=== PATIENT | female | born 1960 | race Caucasian/White ===

== ENCOUNTER 2020-11-04 12:25 | Day surgery (SDC) | payer OTHER ==
[2020-11-02 10:38] LABS: MICROSCOPIC NOT IND
[2020-11-02 10:40] LABS: BASOPHILS % (AUTO) 1 % (0-1); EOSINOPHILS % (AUTO) 1 % (1-7); LYMPHOCYTES % (AUTO) 36 % (22-44); MD NO; MEAN CORPUSCULAR HEMOGLOBIN 31.9 pg (27.0-34.8); MEAN CORPUSCULAR HGB CONC 33.7 g/dL (32.4-35.8); MEAN PLATELET VOLUME 7.1 fL (7.4-10.4); MONOCYTES % (AUTO) 8 % (2-9); NEUTROPHILS % (AUTO) 54 % (42-75); PLATELET COUNT 366 x10^3/uL (130-400); RED BLOOD COUNT 4.47 x10^6/uL (3.82-5.3); RED CELL DISTRIBUTION WIDTH 12.8 % (9.6-15.2)
[2020-11-02 10:49] LABS: ALANINE AMINOTRANSFERASE 32 U/L (12-78); ALBUMIN 4.4 g/dL (3.4-5.0); ANION GAP 6 mmol/L (5-15); CALCIUM 9.5 mg/dL (8.5-10.1); CHLORIDE 106 mmol/L (98-107); CREATININE 0.77 mg/dL (0.55-1.02)
[2020-11-02 10:51] LABS: ALKALINE PHOSPHATASE 79 U/L (45-117); BILIRUBIN,TOTAL 0.6 mg/dL (0.2-1.0); TOTAL PROTEIN 8.4 g/dL (6.4-8.2)
[~2020-11-04] VITALS: Ht 167.6 cm; Wt 58.8 kg
[~2020-11-04 12:25] MED LIST: ATOR10TA9 PO; CRAN500T3 PO; LEVO25TA4 PO; LISI-167 PO; METH500T5 PO
[2020-11-04] MEDS ORDERED: LACTATED RINGERS 1,000 ML IV SCH (13:00)
[2020-11-04 13:05] VITALS: BP 127/79
[2020-11-04] MEDS ORDERED: CHLORHEXIDINE 15 ML UDC ONE (13:08)
[2020-11-04] MEDS ORDERED: ONDANSETRON 2MG/ML, 2ML IVPush PRN (13:30)
[2020-11-04] MEDS ORDERED: HYDROcodone/APAP 7.5-325MG/15ML UDC PO PRN (13:30)
[2020-11-04] MEDS ORDERED: HYDROmorphone 1 MG/ML, 1ML INJ IVPush PRN (13:30)
[2020-11-04] MEDS ORDERED: PROMETHAZINE 25 MG/ML, 1ML IVPush PRN (13:30)
[2020-11-04] MEDS ORDERED: MEPERIDINE/PF 25MG/0.5ML IVPush PRN (13:30)
[2020-11-04] MEDS ORDERED: OXYcodone 5 MG/5 ML ORAL.SOL UDC PO PRN (13:30)
[2020-11-04] MEDS ORDERED: CHLORHEXIDINE 15 ML UDC PO ONE (13:30)
[2020-11-04] MEDS ORDERED: FENTANYL PF 100 MCG/2ML ONE ×2 (14:15→16:59)
[2020-11-04] MEDS ORDERED: MIDAZOLAM 1 MG/ML, 2ML ONE (14:15)
[2020-11-04] MEDS ORDERED: EPINEPHRINE 1 MG/ML, 1ML ONE (15:09)
[2020-11-04] MEDS ORDERED: FLUORESCEIN SODIUM 500 MG/5 ML ONE (15:09)
[2020-11-04] MEDS ORDERED: METHYLENE BLUE 50 MG/10 ML AMP ONE (15:09)
[2020-11-04] MEDS ORDERED: LIDOCAINE/PF 1%, 30ML ONE (15:09)
[2020-11-04] MEDS ORDERED: GLYCOPYRROLATE 0.2MG/1ML, 5ML ONE (16:33)
[2020-11-04] MEDS ORDERED: DEXAMETHASONE 4 MG/ML, 1ML ONE (16:33)
[2020-11-04] MEDS ORDERED: ONDANSETRON 2MG/ML, 2ML ONE (16:33)
[2020-11-04] MEDS ORDERED: CEFAZOLIN 1,000 MG ONE (16:33)
[2020-11-04] MEDS ORDERED: SUCCINYLCHOLINE 20 MG/ML, 10ML ONE (16:33)
[2020-11-04] MEDS ORDERED: ROCURONIUM 10MG/ML,5ML ONE (16:33)
[2020-11-04] MEDS ORDERED: NEOSTIGMINE 1 MG/ML, 10ML ONE (16:33)
[2020-11-04] MEDS ORDERED: PROPOFOL 10 MG/ML, 20ML ONE (16:33)
[2020-11-04] MEDS ORDERED: OXYcodone 5 MG/5 ML ORAL.SOL UDC ONE (16:59)
[2020-11-04] MEDS: FENTANYL PF 100 MCG/2ML IV PRN ×2 (17:00→17:05)
[2020-11-04] MEDS ORDERED: HYDROcodone/APAP 7.5-325MG/15ML UDC ONE (17:03)
[2020-11-04] MEDS ORDERED: SIMETHICONE 125 MG CHEW TAB PO PRN (19:00)
== END 2020-11-04 19:15 | disposition home or self-care (01) ==
LOC: OUT 12:25 → EDSTATUS 14:30 → OUT 19:15
PROVIDERS: ATTEND Obstetrics & Gynecology Gynecology
DX: R19.09 Other intra-abdominal and pelvic swelling, mass and lump (principal); N83.8 Other noninflammatory disorders of ovary, fallopian tube and broad ligament; D27.1 Benign neoplasm of left ovary; I10 Essential (primary) hypertension; Z20.822 Contact with and (suspected) exposure to COVID-19; Z79.899 Other long term (current) drug therapy; Z88.2 Allergy status to sulfonamides; Z91.041 Radiographic dye allergy status; Z90.710 Acquired absence of both cervix and uterus
CPT/HCPCS: 36415; 58661; 71046; 80053; 81003; 85025; 88112; 88305; 93005; J0171; J0330; J0690; J1100; J2250; J2405; J2704; J2710; J3010; J7120; Q9968; U0003; U0005